=== PATIENT | female | born 1995 | race African-American/Black ===

== ENCOUNTER 2024-01-28 20:17 | Emergency (ER) | payer OTHER, SELFPAY ==
--- NOTE | ~2024-01-28 | XR_ITS ---
EXAMINATION: XR chest 2V Exam Date/Time: 01/28/2024 21:34 CDT HISTORY: fever, headache weakness Comparison: None. RESULT: Lines, tubes, and devices: None. Lungs and pleura: Clear. Cardiomediastinal silhouette: Normal. Other: No acute osseous or upper abdominal finding. IMPRESSION: No acute cardiopulmonary process. Reviewed, dictated and finalized at location [facility].
--- NOTE | 2024-01-28 20:28 | ED.FEVER ---
HPI - Fever General Chief Complaint: Fever Stated Complaint: fever, headache, UTI Time Seen by Provider: 01/28/24 20:27 Discharge Plan Discharge Follow-up/Referrals: PHYSICIAN NOT ON STAFF,NONSTAFF [Primary Care Provider] -
[2024-01-28 20:29] VITALS: BP 138/85; PULSE 102; RESP 20; TEMP 37.1; O2SAT 97
--- NOTE | 2024-01-28 20:29 | ED.GENADULT ---
HPI - General Adult General Chief complaint: Fever Stated complaint: fever, headache, UTI Time Seen by Provider: 01/28/24 20:27 History of Present Illness HPI narrative: Patient is a 28 year old female with history of HTN, anxiety here with headache, fever and body aches. Patient notes she started developing urinary symptoms around 1 week ago including cloudy urine and pain. She went to an outside hospital on 01/24 and had blood work drawn, they diagnosed her with a UTI and started her on keflex. She has been taking the keflex BID since then. Her urinary symptoms have largely improved but she has progressively felt worse with constitutional symptoms including a headache, body aches, and fever. Temperatures at home with a very old thermometer have been upwards of 104-105F. She last took tylenol around 6 pm. She came in today due to worsening symptoms and worry that she has something else going on. No sick contacts that she is aware of. No cough, congestion, diarrhea, abdominal pain. She has had some nausea today. Related Data Home Medications Medication Instructions Recorded Confirmed amlodipine 5 mg tablet mg 01/28/24 cephalexin 500 mg capsule mg 01/28/24 fluoxetine 20 mg capsule mg 01/28/24 montelukast 10 mg tablet mg 01/28/24 Allergies Allergy/AdvReac Type Severity Reaction Status Date / Time No Known Allergies Allergy Verified 01/28/24 20:58 Review of Systems Review of Systems: All systems reviewed & are unremarkable except as noted in HPI and below Exam Narrative: GENERAL: Well-appearing, well-nourished, and in no acute distress. HEAD: Normocephalic, atraumatic. EYES: PERRLA and EOMI. ENT: Nares clear. Mucous membranes moist. NECK: Supple. CHEST: Clear to auscultation. No respiratory distress. HEART: Regular rate and rhythm. Normal peripheral pulses. ABDOMEN: Soft, nontender, nondistended. EXTREMITIES: Normal range of motion. No edema. SKIN: Warm, dry, no rash. NEURO: No focal deficits. Alert and oriented x3. PSYCH: Normal mood and affect. Course Course Emergency Course: Chart review performed. No prior visits in our system. Patient here with fever, headache, generalized weakness. Nursing note states she was seen here recently and started on keflex however no correlating ED visit in our system. Patient seen evaluated, nontoxic appearing. She is describing constitutional infectious symptoms including fever, body aches, headache, generalized weakness. Will do septic workup, COVID, influenza, RSV, UA. Was able to evaluate patient's lab work from recent visit via her patient portal. Labs from 01/24: - UA: 2+ leukocytes, nitrite negative, 1+ bacteria, 6-10 WBC - Urine culture: polymicrobial/[place] - Lactic 0.9 - CBC: WBC 8, HGB 12.3 - CMP: BUN 12, Creat 1.16 Lab work and imaging reviewed, CBC reassuring. Electrolytes grossly normal. Normal lactic, normal renal function. She does have an elevated CRP at 18.3. UA negative for UTI. COVID, influenza, RSV negative. Patient is positive for mononucleosis. Chest x-ray negative. Patient re-evaluated, feeling quite a bit better at this time after medications here in the department. The results of pertinent diagnostic studies and exam findings were discussed. The patient?s provisional diagnosis and plan of care were discussed with the patient and present family. The patient and/or present family expressed understanding of the diagnosis and plan. The nurse was instructed to provide written instructions and appropriate follow-up information. The patient understands their need and responsibility to obtain additional follow-up as instructed. The risks of medications administered and prescribed were discussed with the patient and family present. Vital Signs Vital signs: Vital Signs Temperature 98.8 F 01/28/24 20:29 Pulse Rate 102 H 01/28/24 20:29 Respiratory Rate 20 01/28/24 20:29 Blood Pressure 138/85 01/28/24 20:29 Pulse Oximetry 97
[2024-01-28] MEDS: IBUPROFEN 600 MG TABLET PO (21:05)
[2024-01-28] MEDS: LACTATED RINGERS 1,000 ML 999 ML IV CONT (21:05)
[2024-01-28] MEDS: ONDANSETRON INJ 4 MG/2 ML VIAL IV PUSH (21:06)
[2024-01-28 21:18] LABS: Lactic Acid Reflex 1.1 mmol/L (0.7-2.0)
[2024-01-28 21:27] LABS: Influenza A QL RT-PCR Negative (Negative); Influenza B QL RT-PCR Negative (Negative); RSV RNA, RT-PCR Negative (Negative); SARS-CoV-2 RNA PCR Negative (Negative)
[2024-01-28 21:31] LABS: CRP 18.3 mg/dL (<1.0)
[2024-01-28 21:41] LABS: Appearance Urine Clear (Clear); Bacteria Urine None Seen /hpf; Bilirubin Urine Negative (Negative); Blood Urine Negative (Negative); Color Urine Yellow (Yellow); Glucose Urine UA Negative (Negative); Ketones Urine Negative (Negative); Leukocyte Esterase Ur Trace LEU/UL (Negative); Nitrate Urine Negative (Negative); Non Pathogenic Casts 0-2; Protein Urine Negative (Negative); RBC Urine 0-2 /hpf (0-2); Specific Grav Ur 1.006 (1.001-1.035); Squamous Epithelial Cell Urine None Seen /hpf (Few); Urobilinogen Urine 0.2 mg/dL (<2.0); WBC Urine 0-5 /hpf (0-3)
[2024-01-28 21:43] LABS: Add Urine Microscopic? YES
[2024-01-28 23:22] LABS: Monoscreen Positive (Negative); Negative Monotest Control Negative (Negative); Positive Monotest Control Positive (Positive)
[2024-01-28 23:25] LABS: Basophils Percent Auto 0.2 % (0.2-1.2); Hematocrit 35.5 % (37.0-47.0); Hemoglobin 11.8 g/dL (12.0-15.0); Immature Granulocyte Absolute 0.17 K/mm3 (0.00-0.031); Lymphocytes Absolute Auto 1.29 K/mm3 (0.9-3.2); Lymphocytes Percent Auto 14.9 % (18.3-44.2); Mean Corpuscular HGB Conc 33.2 g/dl (32-36); Mean Corpuscular Hemoglobin 25.4 pg (26-34); Mean Corpuscular Volume 76.3 fl (80-100); Mean Platelet Volume 10.3 fl (7.4-10.4); Monocytes Absolute Auto 0.5 K/mm3 (0.1-0.6); Monocytes Percent Auto 5.9 % (2.6-8.5); Neutrophils Absolute Auto 6.7 K/mm3 (1.3-6.7); Platelet Count Result 346 k/mm3 (150-375); Red Blood Count 4.65 M/mm3 (4.2-5.4); Red Cell Distribution Width 13.9 % (11.5-14.5); White Blood Count 8.7 K/mm3 (4.5-10.0)
[2024-01-28 23:57] LABS: Alanine Aminotransferase 22 U/L (6-35); Alkaline Phosphatase 88 U/L (38-126); Anion Gap 9 mmol/L (4-12); Aspartate Amino Transferase 32 U/L (14-36); Bilirubin,Total 0.4 mg/dL (0.2-1.3); Blood Urea Nitrogen 4 mg/dL (7-17); Calcium 8.6 mg/dL (8.4-10.2); Carbon Dioxide 23 mmol/L (22-30); Chloride 99 mmol/L (98-107); Estimated CRCL calculation 81 ml/min; Estimated Glomerular Filt Rate > 60; Glucose 106 mg/dL (65-110); Potassium 4.2 mmol/L (3.4-5.0); Sodium 131 mmol/L (137-145)
[2024-01-29 00:39] VITALS: BP 118/78; PULSE 98; RESP 18; O2SAT 98
== END 2024-01-29 00:40 | disposition home or self-care (01) ==
PROVIDERS: Emergency Provider Student in an Organized Health Care Education/Training Program
DX: B27.90 Infectious mononucleosis, unspecified without complication (principal); R79.82 Elevated C-reactive protein (CRP); Z20.822 Contact with and (suspected) exposure to COVID-19; I10 Essential (primary) hypertension; F41.9 Anxiety disorder, unspecified; Z79.899 Other long term (current) drug therapy
CPT/HCPCS: 36415; 71046; 80053; 81001; 81025; 83605; 85025; 86140; 86308; 87040; 87637; 96361; 96374; 99284; A9270; J2405; J7120